=== PATIENT | female | born 1960 | race Caucasian/White ===

== ENCOUNTER 2024-01-14 17:59 | Emergency (ER) | payer BC, SELFPAY ==
[2024-01-14 18:06] VITALS: BP 134/75
[2024-01-14 18:52] VITALS: BMI 19.3
[2024-01-14] MEDS: HyperRAB 988 UNIT IM (19:58)
[2024-01-14] MEDS: RABAVERT RABIES VACC W-DILUENT 2.5 UNIT IM (20:01)
[2024-01-14 20:18] VITALS: BP 135/70
--- NOTE | 2024-01-14 22:22 | ED.SKININJ ---
HPI-Injury
General
Chief Complaint: Bite
Source: patient
Exam Limitations: none
Time Seen by Provider: 01/14/24 18:50
Nursing documentation reviewed up to this point in time: agreed with
History of Present Illness-Injury
Is this injury a work related problem?: No
Is pt an associate of [facility]/[place]?: No
Initial Injury comments:
Patient states she was bit by unknown dog on friday while walking near her home Sustained a bite to her left posterior thigh. Initially seen at after incident. Started on antibiotic and told to come to ED to start rabies series. She has been
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 Brought self to ED for eval.
Past History
Past History
ED Past Medical History: None
Review of Systems
Review of Systems
Allergies reviewed?: Yes
All Other Systems: ROS reviewed and negative except as documented in HPI and ROS
Constitutional: Reports no symptoms
Musculoskeletal: Reports no symptoms
Skin: Reports other (Dog bite left posterior thigh)
Neurological: Reports no symptoms
Psychiatric: Reports no symptoms
Skin Exam
Bite
Left Posterior Thigh:
Type: animal
Skin has: puncture wounds
Surrounding area around bite has: no evidence of erythema
Distal skin color and temperature: normal-warm & good color
Normal distal neurovascular exam: Yes
Phy Exam
General Physical Exam
General Presentation: well appearing and no apparent distress
General age: appears stated age
General Skin: warm and dry
General Habitus: normal
General Mental: alert
Musculoskeletal Exam
Musculoskeletal Exam: full ROM and neuro vasc intact
Skin Exam
Skin Exam: normal color and warm/dry
Psychiatric Exam
Psychiatric Exam: normal mood/affect
Course
Orders/Labs/Results
Orders:
Orders
01/14/24 19:33
Rabies Immune Globulin/Pf [HyperRAB] 988 unit IM NOW STA
01/14/24 19:45
Rabies Vaccine (Pcec)/Pf [Rabavert Rabies Vacc W-Diluent] 2.5 unit IM .ONCE ONE
Vital Signs
Initial and Last Documented VS:
Initial Vital Signs
Temp Pulse Resp BP Pulse Ox
98.4 F 80 16 134/75 97
01/14/24 18:06 01/14/24 18:06 01/14/24 18:06 01/14/24 18:06 01/14/24 18:06
Last Documented Vital Signs
Temp Pulse Resp BP Pulse Ox
98.4 F 71 16 135/70 97
01/14/24 18:06 01/14/24 20:18 01/14/24 18:06 01/14/24 20:18 01/14/24 20:18
*Critical Care Note
Total Time (30-74mins, 75-104mins- exclusive of procedures): Not Applicable
ED Attending Note
-
Portions of this chart may have been created with voice recognition software.� Occasional wrong word or��sound alike� substitutions may have occurred due to the inherent limitations of voice recognition software.
Discharge Plan
Departure
Patient Disposition: Home (Routine Discharge)
Date of Disposition: 01/14/24
Time of Disposition: 19:28
Patient with high blood pressure during this ER visit?: No
Condition: Good
Covid-19: Not Applicable
Discharge Problem:
Dog bite
Instructions: Animal Bites (DC), Wound Care (DC), Rabies Vaccine
Prescriptions:
New
RabAvert (PF) 2.5 unit Suspension For Reconstitution
1 ml IM . DIRECTED Qty: 3 0RF
Rx Instructions:
See Rabies Vaccine Post Exposure Prophylaxis Instruction Sheet for Dosing Instructions
Referrals:
Iraida Medel, DO [Family Provider] -
Stand Alone Forms: Rabies Vaccine Post Exp Dosing
Interventions
Interventions:
*Risk Screen - Suicide Last Done: 01/14/24 18:06
*General Assessment Last Done: 01/14/24 18:06
*Neglect/Abuse Screening Last Done: 01/14/24 18:06
ED- Fall Risk Assessment Last Done: 01/14/24 18:15
*ED COVID-19 Vaccine History Last Done: 01/14/24 18:06
*Nursing Disposition Last Done: 01/14/24 20:18
ED-Skin Assessment Last Done: 01/14/24 18:58
Discharge Date and Time
Discharge Date/Time: 01/14/24 20:32
Print Language: WELSH
== END 2024-01-14 20:32 | disposition home or self-care (01) ==
LOC: EMR 17:59
PROVIDERS: EMERGENCY PHYSICIAN Emergency Medicine; FAMILY PHYSICIAN Internal Medicine
DX: S71.132A Puncture wound without foreign body, left thigh, initial encounter (principal); W54.0XXA Bitten by dog, initial encounter; Z20.3 Contact with and (suspected) exposure to rabies; Z23 Encounter for immunization; Z88.0 Allergy status to penicillin; M81.0 Age-related osteoporosis without current pathological fracture; R73.03 Prediabetes
CPT/HCPCS: 99284; 90471; 96372; 90375; 90675

== ENCOUNTER 2024-01-28 09:04 | Outpatient (RCR) | payer BC, SELFPAY ==
[2024-01-16 15:29] VITALS: BP 113/75
[2024-01-16] MEDS: RABAVERT RABIES VACC W-DILUENT 2.5 UNIT IM (15:54)
[2024-01-21 07:54] VITALS: BP 101/60
[2024-01-21] MEDS: RABAVERT RABIES VACC W-DILUENT 2.5 UNIT IM (08:04)
[2024-01-28 09:24] VITALS: BP 106/61
[2024-01-28] MEDS: RABAVERT RABIES VACC W-DILUENT 2.5 UNIT IM (09:30)
== END 2024-01-29 09:21 | disposition home or self-care (01) ==
LOC: OID 09:04
PROVIDERS: ATTENDING PHYSICIAN Emergency Medicine; FAMILY PHYSICIAN Internal Medicine
DX: Z20.3 Contact with and (suspected) exposure to rabies (principal); Z23 Encounter for immunization
CPT/HCPCS: 90471; 90675